=== PATIENT | male | born 1985 | race Two or more races ===

== ENCOUNTER 2024-03-16 00:42 | Emergency (ER) | payer OTHER, SELFPAY ==
[2024-03-16 00:46] VITALS: BP 124/88; PULSE 74; RESP 18; TEMP 36.4; O2SAT 98; BMI 27.5
[2024-03-16 02:18] VITALS: BP 124/84; PULSE 68; RESP 16; TEMP 36.7; O2SAT 97
[2024-03-16 04:07] VITALS: BP 114/68; PULSE 63; RESP 12; TEMP 36.4; O2SAT 97
--- NOTE | 2024-03-16 05:20 | ED.WOUNDLAC ---
HPI - Wound/Laceration General Chief Complaint: Wound/Laceration Stated Complaint: lac on arm Time Seen by Provider: 03/16/24 05:20 Source: patient Mode of arrival: ambulatory Limitations: no limitations History of Present Illness ED Provider: Dr. 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 He is up to date with his tetanous. Onset (ago): hour(s) Related Data Allergies Allergy/AdvReac Type Severity Reaction Status Date / Time No Known Allergies Allergy Verified 03/16/24 00:48 Review of Systems Review of Systems: Yes all other systems are reviewed and are negative Neurologic: Denies Sensory deficit (Neuro) [facility] Social History Social History Advance Directives: No Advance Directives Information Provided: No Do you have a plan to hurt others: No Plan Physical Exam Vital Signs: Vital Signs: Last Vital Signs Temp 97.8 F 03/16/24 06:13 Pulse 62 03/16/24 06:13 Resp 12 03/16/24 06:13 BP 109/67 03/16/24 06:13 Pulse Ox 98 03/16/24 06:13 O2 Del Method Room Air 03/16/24 06:13 BMI result Body Mass Index 27.5 Const: General: healthy appearing Nutritional Appearance: average body habitus Orientation/consciousness: oriented to person and patient oriented x3 Limitations: no limitations HEENT: Head: Yes normal to inspection Ears: external ears normal General nose exam: Normal external nose present Mouth: Normal oral and palatal mucosa present and oropharynx normal Throat: Yes posterior oropharynx normal Eyes: General: appearance normal, both eyes and all related structures Neck: Other: supple Neck: Yes normal visual inspection Chest: Chest palpation & inspection: normal inspection of the chest Resp: Auscultation: clear to auscultation bilaterally Cardio: Jugular venous distension: no JVD Rate: regular rate Rhythm: regular rhythm Heart sounds: S1 normal heart sound present and S2 normal heart sound present GI: Inspection: Yes normal to inspection Palpation (GI): Soft to palpation, nontender and No hepatosplenomegaly present Auscultation: normal bowel sounds : General: Yes no CVA tenderness Back/Spine/Pelvis: Back: no CVA tenderness Skin: Other: left elbow with a linear 8cm laceration Neuro: General: oriented to person and patient oriented x3 Cranial nerves: Yes CN's II-XII intact bilaterally Motor exam (neuro): 5/5 motor strength present throughout Sensory Exam: No Sensory deficit (Neuro) Extrem: General: Yes normal to inspection Psych: Appearance: grossly normal Course Reevaluation(s) Reevaluation #1: procedure: patient prepped and draped, single central staple placed, wound adhesive used for the entire rest of the wound, patient tolerated procedure well Time: 07:00 Medical Decision Making Differential Diagnosis Differential Diagnoses: The differential diagnosis associated with the presentation includes (laceratioon) Prescription Management I considered prescription management with: Antibiotic (no need for abx at this time) Discharge Plan Discharge Clinical Impression: Laceration Patient Disposition: Home, Self-Care Instructions: Skin Adhesive Care (ED) Additional Instructions: staple removal in 10 days Referrals: Physician,None [Primary Care Provider] - 10 days Print Language: Luxembourgish
--- NOTE | 2024-03-16 05:28 | PC.NURSE ---
left arm wrap removed no bleeding. pt able to move his arm and fingers. waiting for skin glue at this time. water supervisor called non in ed at this time
[2024-03-16 06:13] VITALS: BP 109/67; PULSE 62; RESP 12; TEMP 36.6; O2SAT 98
[2024-03-16 07:06] VITALS: BP 109/67; PULSE 62; RESP 12; TEMP 36.6; O2SAT 98
== END 2024-03-16 07:07 | disposition home or self-care (01) ==
PROVIDERS: Emergency Provider Emergency Medicine
DX: S51.012A Laceration without foreign body of left elbow, initial encounter (principal); M79.602 Pain in left arm; Y28.9XXA Contact with unspecified sharp object, undetermined intent, initial encounter; Y93.89 Activity, other specified; Y92.89 Other specified places as the place of occurrence of the external cause; Y99.0 Civilian activity done for income or pay
CPT/HCPCS: 12034; 99283; 99284

== ENCOUNTER 2024-03-30 01:46 | Emergency (ER) | payer OTHER, SELFPAY ==
[2024-03-30 01:50] VITALS: BP 137/80; PULSE 94; RESP 14; TEMP 36.7; O2SAT 97; BMI 28.2
--- NOTE | 2024-03-30 05:02 | ED.GENADULT ---
HPI - General Adult General Chief complaint: General Medical Stated complaint: needs lanie removed Time Seen by Provider: 03/30/24 04:45 Source: patient Mode of arrival: ambulatory Limitations: no limitations History of Present Illness ED Provider: raymond FLORES narrative: Patient Came for staple removal from the left elbow laceration which was placed on 03/16 wound has opened up but is healing now Related Data Allergies Allergy/AdvReac Type Severity Reaction Status Date / Time No Known Allergies Allergy Verified 03/30/24 01:52 Review of Systems Review of Systems: Yes all other systems are reviewed and are negative [facility] Social History Social History Unable to assess alcohol history related to: Unknown Smoked in Last 30 Days: Yes Use of substances other than those prescribed or required for medical reasons: Unknown Advance Directives: No Advance Directives Information Provided: No Do you have a plan to hurt others: No Plan Physical Exam ED Vital Signs: Vital Signs - 24 hr 03/30/24 01:50 03/30/24 05:15 Temperature 98.1 F 98.1 F Pulse Rate 94 86 Respiratory Rate 14 16 Blood Pressure 137/80 126/84 Pulse Oximetry 97 97 Oxygen Delivery Method Room Air Room Air BMI result Body Mass Index 28.2 Extrem Shoulder/upper arm images: 1. Second-degree healing of open laceration with 1 staple intact which was removed Medical Decision Making Medical Decision Making [facility] Narrative: Single staple was removed wound looks healthy advised local care Discharge Plan Discharge Clinical Impression: Wound dehiscence, Removal of lanie Patient Disposition: Home, Self-Care Instructions: Stitches Removal (ED) Additional Instructions: Local care of the wound as advised Interventions: ED Discharge Assessment Last Done: 03/30/24 05:15 Discharge Date/Time: 03/30/24 05:17 Print Language: Belgian
--- NOTE | 2024-03-30 05:09 | PC.NURSE ---
at bedside for staple removal.
[2024-03-30 05:15] VITALS: BP 126/84; PULSE 86; RESP 16; TEMP 36.7; O2SAT 97
== END 2024-03-30 05:17 | disposition home or self-care (01) ==
PROVIDERS: Emergency Provider Internal Medicine
DX: Z48.02 Encounter for removal of sutures (principal)
CPT/HCPCS: 99284

== ENCOUNTER 2024-10-25 01:17 | Emergency (ER) | payer OTHER, SELFPAY ==
[2024-10-25 01:27] VITALS: BP 137/87; PULSE 76; O2SAT 96
[2024-10-25 01:37] VITALS: BP 118/58; PULSE 69; RESP 16; TEMP 36.7; O2SAT 96; BMI 25.7
[2024-10-25 02:28] LABS: Influenza A PCR NEGATIVE (Negative); Influenza B PCR NEGATIVE (Negative); Resp Syncy Virus RNA Qual PCR NEGATIVE (Negative); SARS COV2 PCR INHOUSE NEGATIVE (Negative)
--- NOTE | 2024-10-25 03:15 | ED.URI ---
HPI - URI/Sore Throat General Chief Complaint: Upper Respiratory Symptoms Stated Complaint: sick person Time Seen by Provider: 10/25/24 02:40 Source: patient Mode of arrival: ambulatory Limitations: no limitations History of Present Illness ED Provider: Dr. Winter Brumfield HPI Narrative: My patient comes to the emergency room complaining of cold-like symptoms, including stuffy / runny nose. Patient denies chest pain or shortness of breath. Patient states that he is asthmatic and has been using his inhaler more than usual Related Data Previous Rx's ?Medication ?Instructions ?Recorded prednisone 20 mg tablet 40 mg (2 x 20 mg) PO DAILY 5 days 10/25/24 #10 tabs Allergies Allergy/AdvReac Type Severity Reaction Status Date / Time No Known Allergies Allergy Verified 10/25/24 01:41 Review of Systems Review of Systems: Constitutional : No Weight loss, No Fever, No Chills, No Night Sweats, No Fatigue, No Malaise ENT/Mouth : No Hearing loss, No Ear Pain, complaining of Nasal Congestion, No Sinus Pain, No Hoarseness, No sore throat, No Rhinorrhea, No Swallowing Difficulty Eyes: No Eye Pain, No Swelling, No Redness, No Foreign Body, No Discharge, No Vision Changes Cardiovascular : No Chest Pain, No SOB, No Dyspnea on Exertion, No Orthopnea, No Edema, No Palpitations Respiratory : No Cough, No Sputum, No Wheezing, No Smoke Exposure, No Dyspnea Gastrointestinal : No Nausea, No Vomiting, No Diarrhea, No Constipation, No abdominal Pain, No Hematochezia, No Melena Genitourinary : no irregular bleeding, No Dysuria, No Urinary Frequency, No Hematuria, No Urinary Incontinence, No Urgency, No Flank Pain, No Urinary Flow Changes, No Hesitancy Musculoskeletal : No joint pain, No Myalgias, No Joint Swelling Skin : No Skin Lesions, No rash Neuro : No Weakness, No Numbness, No Paresthesias, No Loss of Consciousness, No Dizziness, No Headache Psych : No Anxiety/Panic, No Depression, No SI/HI/AH/VH, No Social Issues, Heme/Lymph: No Bruising, No Bleeding,No Lymphadenopathy Endocrine : No Polyuria, No Polydipsia, No Temperature Intolerance [facility] Social History Social History Unable to assess alcohol history related to: Unknown Advance Directives: No Advance Directives Information Provided: Yes Do you have a plan to hurt others: No Plan Physical Exam Vital Signs: Vital Signs: Last Vital Signs Temp 98.0 F 10/25/24 01:37 Pulse 69 10/25/24 01:37 Resp 16 10/25/24 01:37 BP 118/58 L 10/25/24 01:37 Pulse Ox 96 10/25/24 01:37 O2 Del Method Room Air 10/25/24 01:37 BMI result Body Mass Index 25.7 Const: Other: Appearance: Alert. Oriented X3. No acute distress. Somnolent but easily arousable Eyes: Pupils equal, round and reactive to light. ENT: Pharynx normal. Neck: Normal inspection. Neck supple. No lymph nodes noted. No crepitus CVS: Normal heart rate and rhythm. Pulses normal. Normal S1 and S2 Respiratory: No respiratory distress. Breath sounds normal. No Wheezing. No rales Abdomen: Soft and nontender. No rigidity. No distention. Skin: Skin warm and dry. Normal skin color. Normal skin turgor. Extremities: No lower extremity edema. No Lacerations. No Rash Neuro: Oriented X 3. No motor deficit. No sensory deficit. Moving all extremities. No slurred speech. CN 2 through 12 grossly intact Psych: calm, cooperative, normal affect Medical Decision Making Medical Decision Making MDM Narrative: Patient's lungs are completely clear, no wheezing Serology negative for RSV, COVID and influenza Lab Data [facility] Lab Attestation statement: I reviewed the patient's lab results. Labs: Lab Results 10/25/24 Range/Units 01:47 Influenza Type A (PCR) NEGATIVE (Negative) Influenza Type B (PCR) NEGATIVE (Negative) RSV RNA Qual (PCR) NEGATIVE (Negative) SARS-CoV-2 RNA (RT-PCR) NEGATIVE (Negative) Discharge Plan Discharge Clinical Impression: Viral URI Patient Disposition: Home, Self-Care Instructions: Viral Syndrome (ED) Additional Instructions: Please follow-up with your primary care physician tomorrow. If you have any worsening or new symptoms, please return to the emergency room or call 911 Prescriptions: New prednisone 20 mg tablet 40 mg PO DAILY 5 Days Qty: 10 0RF Print Language: Portuguese
[2024-10-25 03:25] VITALS: BP 118/58; PULSE 69; RESP 16; TEMP 36.7; O2SAT 96
== END 2024-10-25 03:27 | disposition home or self-care (01) ==
PROVIDERS: Emergency Provider Emergency Medicine
DX: J06.9 Acute upper respiratory infection, unspecified (principal); Z03.818 Encounter for observation for suspected exposure to other biological agents ruled out
CPT/HCPCS: 0241U; 99282; 99283